=== PATIENT | female | born 1980 | race Caucasian/White ===

== ENCOUNTER → 2020-01-21 15:00 | Outpatient (BNVA) | payer SELFPAY | PROVIDERS: Family Provider Nurse Practitioner Family; PCP Nurse Practitioner Family; Visit Provider Nurse Practitioner Family | DX: R68.89 Other general symptoms and signs (principal) | CPT/HCPCS: 87635 ==

== ENCOUNTER → 2020-01-22 21:37 | Outpatient (BNVA) | payer SELFPAY | PROVIDERS: Family Provider Nurse Practitioner Family; PCP Nurse Practitioner Family; Visit Provider Nurse Practitioner Family | DX: R68.89 Other general symptoms and signs (principal) | CPT/HCPCS: 87071; 87400; 87880 ==

== ENCOUNTER → 2020-01-23 14:30 | Outpatient (BNVA) | payer SELFPAY | PROVIDERS: Family Provider Nurse Practitioner Family; PCP Nurse Practitioner Family; Visit Provider Nurse Practitioner Family | DX: R68.89 Other general symptoms and signs (principal) | CPT/HCPCS: 87635 ==

== ENCOUNTER → 2020-01-28 10:58 | Outpatient (BNVA) | payer SELFPAY | PROVIDERS: Family Provider Nurse Practitioner Family; PCP Nurse Practitioner Family; Visit Provider Nurse Practitioner Family | DX: I10 Essential (primary) hypertension (principal) | CPT/HCPCS: 80053; 80061; 81001; 82306; 83036; 84443; 85025 ==

== ENCOUNTER → 2020-10-06 10:00 | Outpatient (BNVA) | payer OTHER, SELFPAY | PROVIDERS: Family Provider Nurse Practitioner Family; PCP Nurse Practitioner Family; Visit Provider Nurse Practitioner Family | DX: E55.9 Vitamin D deficiency, unspecified (principal); I10 Essential (primary) hypertension; D64.9 Anemia, unspecified; E78.2 Mixed hyperlipidemia; Z79.899 Other long term (current) drug therapy; F41.9 Anxiety disorder, unspecified; H66.90 Otitis media, unspecified, unspecified ear; F32.9 Major depressive disorder, single episode, unspecified; J22 Unspecified acute lower respiratory infection | CPT/HCPCS: 80053; 80061; 81003; 82306; 83036; 83550; 83735; 84443; 85025 ==

== ENCOUNTER → 2020-10-17 16:22 | Outpatient (BNVA) | payer OTHER, SELFPAY | PROVIDERS: Family Provider Nurse Practitioner Family; PCP Nurse Practitioner Family; Visit Provider Nurse Practitioner Family | DX: D64.9 Anemia, unspecified (principal) | CPT/HCPCS: 82270 ==

== ENCOUNTER → 2021-05-21 08:49 | Outpatient (BNVA) | payer OTHER, SELFPAY | PROVIDERS: Family Provider Nurse Practitioner Family; PCP Nurse Practitioner Family; Visit Provider Nurse Practitioner Family | DX: M77.50 Other enthesopathy of unspecified foot and ankle (principal) | CPT/HCPCS: 73630 ==

== ENCOUNTER → 2021-06-09 11:25 | Outpatient (BNVA) | payer OTHER, SELFPAY | PROVIDERS: Family Provider Nurse Practitioner Family; PCP Nurse Practitioner Family; Visit Provider Nurse Practitioner Women's Health | DX: N91.2 Amenorrhea, unspecified (principal); Z12.39 Encounter for other screening for malignant neoplasm of breast; Z01.419 Encounter for gynecological examination (general) (routine) without abnormal findings; N76.0 Acute vaginitis; B96.89 Other specified bacterial agents as the cause of diseases classified elsewhere | CPT/HCPCS: 82670; 83001; 84146; 84443; 88175 ==

== ENCOUNTER → 2021-06-16 08:38 | Outpatient (BNVA) | payer OTHER, SELFPAY | PROVIDERS: Family Provider Nurse Practitioner Family; PCP Nurse Practitioner Family; Visit Provider Nurse Practitioner Women's Health | DX: E28.2 Polycystic ovarian syndrome (principal); N93.0 Postcoital and contact bleeding | CPT/HCPCS: 76830 ==

== ENCOUNTER → 2021-06-26 00:01 | Outpatient (BNVA) | payer OTHER, SELFPAY | PROVIDERS: Family Provider Nurse Practitioner Family; PCP Nurse Practitioner Family; Visit Provider Nurse Practitioner Women's Health | DX: N95.1 Menopausal and female climacteric states (principal); A59.9 Trichomoniasis, unspecified | CPT/HCPCS: 87491; 87591; 87661 ==

== ENCOUNTER → 2022-04-21 08:28 | Outpatient (BNVA) | payer OTHER, SELFPAY | PROVIDERS: Family Provider Nurse Practitioner Family; PCP Nurse Practitioner Family; Visit Provider Nurse Practitioner | DX: R41.3 Other amnesia (principal); E55.9 Vitamin D deficiency, unspecified; I10 Essential (primary) hypertension | CPT/HCPCS: 80053; 82306; 82746; 84443; 85025 ==

== ENCOUNTER → 2022-04-23 11:16 | Outpatient (BNVA) | payer OTHER, SELFPAY | PROVIDERS: Family Provider Nurse Practitioner Family; PCP Nurse Practitioner Family; Visit Provider Nurse Practitioner | DX: R79.89 Other specified abnormal findings of blood chemistry (principal) | CPT/HCPCS: 84439; 84480 ==

== ENCOUNTER 2024-02-09 15:28 | Emergency (ER) | payer SELFPAY ==
[2024-02-09 15:41] VITALS: BP 190/93; PULSE 60; RESP 18; TEMP 36.6; O2SAT 100; BMI 35.5
[2024-02-09 15:57] LABS: Basophils # 0.1 10^3/uL (0.0-0.1); Basophils % 1.2 %; Eosinophils # 0.5 10^3/uL (0.0-0.8); Eosinophils % 8.2 %; Hematocrit 34.6 % (36-47); Lymphocytes # 2.5 10^3/uL (0.8-4.8); Lymphocytes % 43.4 %; Mean Corpuscular HGB Conc 32.9 g/dL (30-55); Mean Corpuscular Hemoglobin 32.5 pg (27-33); Mean Corpuscular Volume 98.6 fl (85-98); Mean Platelet Volume 12.9 fL (7.4-10.4); Monocytes # 0.3 10^3/uL (0.2-0.9); Neutrophils # 2.37 10^3/uL (1.8-7.7); Nucleated Red Blood Cells % 0 %; Platelet Count 176 10^3/cmm (157-399); Red Blood Count 3.51 10^6/uL (3.85-5.65); Red Cell Distribution Width 12.5 % (12.1-15.1); White Blood Count 5.64 10^3/uL (3.29-11.43)
--- NOTE | 2024-02-09 15:57 | ED_ITS ---
HPI - Altered Mental Status 2 General: Chief Complaint: Altered Mental Status Stated Complaint: ams Time Seen by Provider: 02/09/24 15:29 History of Present Illness: 43-year-old female with a history of anx iety and depression who presents the emergency room with a syncopal episode/found unresponsive. She was at work. Apparently she was unconscious and heart rate was in the 40s. She was given Narcan and awoke fairly quickly. She says she has issues with her blood pressure and denies any drug use other than her home Xanax. And had not taken that today she says. This point she is awake alert and slightly hypertensive. She denies any chest pain. No focal motor deficits. Currently not altered. Shortly after she was placed in the room she was walking out of the hospital and decided she wanted to leave AMA. Review of Systems 2 Narrative: Constitutional symptoms: Negative except as documented in HPI. Skin symptoms: Negative except as documented in HPI. Eye symptoms: Negative except as documented in HPI. ENMT symptoms: Negative except as documented in HPI. Respiratory symptoms: Negative except as documented in HPI. Cardiovascular symptoms: Negative except as documented in HPI. Gastrointestinal symptoms: Negative except as documented in HPI. Genitourinary symptoms: Negative except as documented in HPI. Musculoskeletal symptoms: Negative except as documented in HPI. Neurologic symptoms: Negative except as documented in HPI. Psychiatric symptoms: Negative except as documented in HPI. Endocrine symptoms: Negative except as documented in HPI. PFSH ED 2 PFSH: Medical History COVID-19 Back pain Arrhythmia Diabetes had gest dm that converted to overt diabetes; managed with oral medication, but came off meds right before her gastric sleeve. No pertinent past medical history neghx: dm,thyroid,dvt/pe PCP: Ronn Zheng PCOS (polycystic ovarian syndrome) Bone spur of foot Fibromyalgia Mixed hyperlipidemia Anemia Medication management Vitamin D deficiency Anxiety and depression Hypertension Surgical History Hx of abdominal surgery (~07/17/15) Gastric Sleeve--- Laparoscopic. Performed in [place], [place]. Multiple surgeries over the next month due to complications from the gastric sleeve surgery. Hx of shoulder surgery (~11/2017) performed by Dr. Simon-- right shoulder Hx of section (~08/01/13) Low transverse section with bilateral tubal ligation. Performed by Dr. Efe Montero at [facility] in [place], [place]. Hx of tubal ligation (~08/01/13) Performed at time of section. Performed by Dr. Efe Montero at [facility] in [place], [place]. Hx of laparoscopy (~10/2004) with D&C Hx laparoscopic cholecystectomy (~09/2003) History of tonsillectomy and adenoidectomy (~1985) Family History Father Hypertension Grandfather Heart disease Maternal Hypercholesteremia Maternal Diabetes Maternal and Paternal Mother Hypercholesteremia Breast cancer, Onset Age: 57 mother had a benign breast lump removed; now on tamoxifen Denies family history of Colon cancer Ovarian cancer Uterine cancer Thyroid disease Stroke Social History Smoking and tobacco/nicotine status: current some day tobacco/nicotine user Substance/Drug Use: never Physical Exam 2 Narrative: General: Alert, no acute distress. Skin: Warm, dry. Head: Normocephalic, atraumatic. Neck: Supple, trachea midline. Eye: Extraocular movements are intact. Ears, nose, mouth and throat: mucosa moist. Cardiovascular: Regular, Normal peripheral perfusion. Respiratory: Lungs are clear to auscultation, respirations are non-labored, breath sounds are equal, Symmetrical chest wall expansion. Gastrointestinal: Soft, Nontender, Non distended, Normal bowel sounds. Musculoskeletal: Normal ROM, no deformity. Neurological: Alert and oriented, No focal neurological deficit observed. Psychiatric: Cooperative, appropriate mood & affect. Course 2 Vital Signs: Vital signs: Vital Signs Temperature 97.9 F 02/09/24 15:41 Pulse Rate 60 02/09/24 15:41 Respiratory Rate 18 02/09/24 15:41 Blood Pressure 190/93 02/09/24 15:41 Pulse Oximetry 100 02/09/24 15:41 Oxygen Delivery Me thod Room Air 02/09/24 15:41 MDM - Altered Mental Status Medical Decision Making I had ordered workup for syncope/altered mental status including drug screens cardiac workup renal function etc. Before any workup could be done the patient was walking out the hospital and was not able to go the doors and nurse had asked her what she wanted and she says she wants to leave. She is alert and walking with no difficulties Lab Data 02/09/24 15:49 02/09/24 15:49 Laboratory Results WBC 5.64 10^3/uL (3.29-11.43) 02/09/24 15:49 RBC 3.51 10^6/uL (3.85-5.65) L 02/09/24 15:49 Hgb 11.40 g/dL (11.27-16.99) 02/09/24 15:49 Hct 34.6 % (36-47) L 02/09/24 15:49 MCV 98.6 fl (85-98) H 02/09/24 15:49 MCH 32.5 pg (27-33) 02/09/24 15:49 MCHC 32.9 g/dL (30-55) 02/09/24 15:49 RDW 12.5 % (12.1-15.1) 02/09/24 15:49 Plt Count 176 10^3/cmm (157-399) 02/09/24 15:49 MPV 12.9 fL (7.4-10.4) H 02/09/24 15:49 Neut % (Auto) 42.0 % 02/09/24 15:49 Lymph % (Auto) 43.4 % 02/09/24 15:49 [place] % (Auto) 5.0 % 02/09/24 15:49 Eos % (Auto) 8.2 % 02/09/24 15:49 Baso % (Auto) 1.2 % 02/09/24 15:49 Neut # (Auto) 2.37 10^3/uL (1.8-7.7) 02/09/24 15:49 Lymph # (Auto) 2.5 10^3/uL (0.8-4.8) 02/09/24 15:49 [place] # (Auto) 0.3 10^3/uL (0.2-0.9) 02/09/24 15:49 Eos # (Auto) 0.5 10^3/uL (0.0-0.8) 02/09/24 15:49 Baso # (Auto) 0.1 10^3/uL (0.0-0.1) 02/09/24 15:49 Nucleated RBC % (auto) 0 % 02/09/24 15:49 Nucleated RBCs # 0.0 /100WBC 02/09/24 15:49 No radiology studies performed this visit Discharge Plan Discharge Patient Disposition: Left Against Medical Advice Clinical Impression: Episode of unresponsiveness Condition: Stable Prescriptions: No Action venlafaxine 37.5 mg capsule,extended release 24hr 37.5 mg PO DAILY 30 Days Qty: 30 1RF alprazolam 0.25 mg tablet 0.25 mg PO BID PRN (Reason: anxiety) 30 Days Qty: 30 0RF Rx Instructions: use sparingly cholecalciferol (vitamin D3) 1,250 mcg (50,000 unit) capsule 50,000 unit PO .weekly 90 Days Qty: 12 1RF Referrals: RONN Zheng, OB GYN PHYSICIAN ASSISTANT [Primary Care Provider] - Patient Instructions: Altered Mental Status (ED) Coding Level of Care Code ED Manager Payer for Justin Alcazar
[2024-02-09 16:24] LABS: Ammonia 51 umol/L (11-51)
[2024-02-09 16:29] LABS: Troponin(5th) Baseline < 6 ng/L (0-10)
[2024-02-09 16:39] LABS: Alanine Aminotransferase 19 U/L (0-33); Alkaline Phosphatase 144 U/L (35-105); Anion Gap 14.5 (5-19); Aspartate Amino Transferase 18 U/L (0-32); Blood Urea Nitrogen 9 mg/dL (6-20); Calcium 8.7 mg/dL (8.5-10.5); Carbon Dioxide 26 mmol/L (22-29); Chloride 104 mmol/L (98-107); Creatinine Clr Calc Pharmacy 105.8386; Globulin 2.6 g/dL (1.3-4.6); Glomerular Filtration Rate 77.6 mL/min (90-130); Glucose 154 mg/dL (65-115); Osmolality Calculated 294 mOsm/kg (285-295); Potassium 3.5 mmol/L (3.5-5.1); Sodium 141 mmol/L (136-145); Thyroid Stimulating Hormone 0.19 uIU/mL (0.27-4.20); Total Bilirubin 0.2 mg/dL (0.15-1.2); Total Protein 6.6 g/dL (6.6-8.7)
[2024-02-09 16:40] LABS: Acetaminophen < 5.0 ug/mL (10-30); Alcohol Level < 10 mg/dL (0-10); Salicylate < 0.3 mg/dL (3-10)
== END 2024-02-09 16:03 | disposition left against medical advice (07) ==
PROVIDERS: Emergency Provider Emergency Medicine; PCP Nurse Practitioner Family
DX: R40.4 Transient alteration of awareness (principal); Z53.29 Procedure and treatment not carried out because of patient's decision for other reasons; Z72.0 Tobacco use; E11.9 Type 2 diabetes mellitus without complications; I10 Essential (primary) hypertension; E78.2 Mixed hyperlipidemia
CPT/HCPCS: 80053; 80307; 82140; 84443; 84484; 85025; 99284

== ENCOUNTER → 2024-02-13 07:59 | Outpatient (BNVA) | payer SELFPAY | PROVIDERS: PCP Nurse Practitioner Family; Visit Provider Nurse Practitioner Family | DX: R55 Syncope and collapse (principal); I95.9 Hypotension, unspecified; Z98.890 Other specified postprocedural states | CPT/HCPCS: 80307; 93005 ==

== ENCOUNTER → 2024-08-07 14:36 | Outpatient (BNVA) | payer BC, SELFPAY | PROVIDERS: PCP Nurse Practitioner Family; Visit Provider Nurse Practitioner Family | DX: M16.11 Unilateral primary osteoarthritis, right hip (principal); M25.551 Pain in right hip | CPT/HCPCS: 73502 ==

== ENCOUNTER → 2025-04-24 10:33 | Outpatient (BNVA) | payer BC, SELFPAY | PROVIDERS: PCP Nurse Practitioner Family; Visit Provider Nurse Practitioner Family | DX: I10 Essential (primary) hypertension (principal); E78.2 Mixed hyperlipidemia; E55.9 Vitamin D deficiency, unspecified; Z98.890 Other specified postprocedural states; D64.9 Anemia, unspecified | CPT/HCPCS: 80053; 80061; 81003; 82306; 82607; 82728; 82746; 83036; 83550; 83735; 84439; 84443; 85025; 86038; 86200; 86431 ==

== ENCOUNTER → 2025-05-09 14:09 | Outpatient (BNVA) | payer BC, SELFPAY | PROVIDERS: PCP Nurse Practitioner Family; Visit Provider Nurse Practitioner Family | DX: Z12.4 Encounter for screening for malignant neoplasm of cervix (principal) | CPT/HCPCS: 87624 ==